=== PATIENT | female | born 1935 | race Caucasian/White ===

== ENCOUNTER 2018-10-17 19:17 | Inpatient (IN) | payer MEDICARE ==
[~2018-10-17] VITALS: Ht 160 cm; Wt 50.0 kg
[2018-10-17 19:26] VITALS: Ht 160 cm; Wt 50.0 kg
--- NOTE | 2018-10-17 19:32 | NUR ---
TAKEN TO BED 4; EKG IN TRIAGE.
[2018-10-17] MEDS ORDERED: CARDIZEM CD180 MG PO (19:58)
[2018-10-17] MEDS ORDERED: LIPI20 PO (19:58)
[2018-10-17 19:59] LABS: RED CELL DISTRIBUTION WIDTH 14.1 % (11.5-14.5)
[2018-10-17] MEDS ORDERED: ADV100/50 INH (19:59)
[2018-10-17] MEDS ORDERED: SYNTHROID0.05 MG PO (19:59)
[2018-10-17] MEDS ORDERED: SPIRIVA18 MC1 INH (19:59)
[2018-10-17 20:05] LABS: PLATELET COUNT 458 x10^3mcL (130-400)
--- NOTE | 2018-10-17 20:07 | NUR ---
PT PRESENTS TO ER TODAY WITH C/O OF SOB THAT STARTED AT APPROX 0200 THIS AM. PT ALSO REPORTS A NON-PRODUCTIVE COUGH THAT STARTED
--- NOTE | 2018-10-17 20:09 | NUR ---
PT PRESENTS TO ER TODAY WITH C/O OF SOB THAT STARTED AT APPORX 0200 THIS AM. PT ALSO REPORTS A NON-PRODUCTIVE COUGH. PTS LUNG SOUNDS ARE CLEAR IN ALL FUENTES WITH AUSCULTATION. PT DENIES ANY PAIN AT THIS TIME. PT ALSO REPORTS THAT SHE FRACTURED HER R KNEE APPROX TWO WEEKS AGO. PT STATES THAT SHE HAS BEEN HAVING INCREASED SWELLING SINCE HER FRACTURE. PTS R FOOT NOTED TO BE RED AND SWOLLEN WITH +2 PITTING EDEMA. CSM INTACT DISTALLY. PT IS A/O X4. RESP ARE EQUAL AND UNLABORED. NO ACUTE DISTRESS NOTED.
[2018-10-17 20:12] LABS: CALCIUM 8.7 mg/dL (8.5-10.1); CARBON DIOXIDE 24.5 mmol/L (21-32); CHLORIDE SERUM 95 mmol/L (98-107); CREATININE SERUM 1.3 mg/dL (0.6-1.0); GLUCOSE SERUM 154 mg/dL (74-106); POTASSIUM SERUM 4.6 mmol/L (3.5-5.1); SODIUM SERUM 130 mmol/L (136-145)
[2018-10-17 20:16] LABS: ALBUMIN 3.4 g/dL (3.4-5.0); ALKALINE PHOSPHATASE 119 U/L (46-116); ALT/SGPT 22 U/L (14-59); AST/SGOT 15 U/L (15-37); BILIRUBIN TOTAL 0.43 mg/dL (0.20-1.00); TOTAL PROTEIN, SERUM 7.5 g/dL (6.4-8.2)
--- NOTE | 2018-10-17 20:29 | NUR ---
LAB AT BEDSIDE DRAWING ABG.
[2018-10-17 20:40] LABS: BAND NEUTROPHIL 4 % (0-10); METAMYELOCTE 5 % (0-2); MONOCYTE 6 % (0-7); MYELOCYTE 1 % (0-2); SEGMENTED NEUTROPHILS 78 % (37-75)
[2018-10-17 20:41] LABS: rbc morphology (normal/abnorm) NORMAL (NORMAL)
[2018-10-17 20:42] LABS: PLATELET MORPHOLOGY PLATELETS NORMAL
--- NOTE | 2018-10-17 21:41 | NUR ---
US AT BEDSIDE.
--- NOTE | 2018-10-17 22:42 | NUR ---
PT RESTING IN BED TALKING TO FRIEND AT BEDSIDE. PT TACHY AT 113, ALL OTHER VITALS WNL. PT IS ON 3L OF O2 VIA NC AT THIS TIME. PT RESP ARE EQUAL AND UNLABORED. NO ACUTE DISTRESS NOTED.
[2018-10-18] VITALS (7 sets, daily range): BP systolic 107–128; BP diastolic 52–75
--- NOTE | 2018-10-18 01:42 | NUR ---
PTS O2 SAT NOTED IN THE HIGH 70'S. PT PLACED ON A MASK AT 15L/MIN. RT CALLED FOR ANOTHER BREATHING TREATMENT PER MD BRASWELL. NO ACUTE DISTRESS NOTED. PT O2 SAT AT 99 PERCENT AFTER PLACEDMENT OF NON-REBREATHER MASK.
--- NOTE | 2018-10-18 01:49 | NUR ---
RT AT BEDSIDE FOR BREATHING TREATMENT.
--- NOTE | 2018-10-18 01:51 | NUR ---
RT AT BEDSIDE TO ADMINISTER BREATHING TREATMENT.
--- NOTE | 2018-10-18 02:27 | NUR ---
REPORT GIVEN TO SILVIO YORK TO ASSUME CARE OF PT.
--- NOTE | 2018-10-18 03:52 | NUR ---
RECEIVED PT FROM ED VIA LOVE. ACCOMPANIED BY NURSE. A/O X4, ADMITTED WITH COMPLAINTS OF SOB AND CP, RESP. EVEN AND UNLABORED. 02 AT 3L/MIN VIA NC, SAT. 94%. HX OF COPD, DENIES CP OR ANY DISCOMFORT AT THIS TIME. S/P FALL [id number] AGO AT HOME.RT FOOT SWELLING /ERYTHEMA. FOOT ELEVATED ON PILLOW. PEDAL PULSE WEAK, ABLE TO MOVE EXTS. SKIN WARM AND DRY. DRY SCABS TO RT KNEE AND LT ELBOW. PICTURES TAKEN AND DOCUMENTED. AMBULATES WITH A CANE. AFEBRILE AND VITAL SIGNS STABLE. PLACED ON TELE #15, ST. WITH HR AT 105 AT THIS TIME. ABD. SOFT, NON DISTENDED, BS ACTIVE. NO N/V NOTED. ORIENTED TO ROOM AND SURROUNDINGS. BED IN LOW POSITION.CALL LIGHT WITHIN REACH. INSTRUCTED TO CALL FOR ASSIST. IF NEEDED. PT VERBALIZED UNDERSTANDING. WILL CONTINUE TO MONITOR.
--- NOTE | 2018-10-18 04:02 | NUR ---
STARTED ON IVF, NS AT 75ML/HR, INFUSING VIA RAC, SITE CLEAR. WILL CONTINUE TO MONITOR.
--- NOTE | 2018-10-18 06:24 | NUR ---
AFEBRILE AND VITAL SIGNS STABLE. RESP. EVEN AND UNLABORED. [address], NO ACUTE DISTRESS NOTED. EYES CLOSED AT THIS TIME, APPEARS ASLEEP, EASILY AROUSABLE. IVF INTACT AND INFUSING WELL, SITE CLEAR. KEPT COMFORTABLE. WILL ENDORSE TO INCOMING NURSE.
[2018-10-18 07:20] LABS: CALCIUM 8.7 mg/dL (8.5-10.1); CARBON DIOXIDE 25.1 mmol/L (21-32); CHLORIDE SERUM 98 mmol/L (98-107); GLUCOSE SERUM 269 mg/dL (74-106); PHOSPHOROUS 3.6 mg/dL (2.5-4.9); POTASSIUM SERUM 3.5 mmol/L (3.5-5.1); SODIUM SERUM 134 mmol/L (136-145)
[2018-10-18 07:27] LABS: PLATELET COUNT 395 x10^3mcL (130-400); RED CELL DISTRIBUTION WIDTH 14.1 % (11.5-14.5)
--- NOTE | 2018-10-18 07:37 | NUR ---
RECEIVED PATIENT FROM JAYLEN ANGUIANO. PATIENT SLEEPING IN BED, PREVIOUS ONE TIME DOSE OF ATIVAN 1 MG IVP GIVEN. NO S/S OF SOB OR PAIN. WILL CONTINUE TO MONITOR AT THIS TIME. PILLOW PLACED TO ELEVATE R FOOT. CALL LIGHT IN REACH AT THIS TIME.
[2018-10-18 07:40] LABS: BASOPHIL % 0 % (0-2)
[2018-10-18 07:46] LABS: CHOLESTEROL 169 mg/dL (<200)
[2018-10-18 07:59] LABS: CHOLESTEROL/HDL RATIO 1.4; FREE T4 1.26 ng/dL (0.76-1.46); FREE THYROXINE INDEX 3.1 ug/dL (1.4-4.5); HDL CHOLESTEROL 124 mg/dL (40-60); T4(THYROXINE) 7.9 ug/dL (4.7-13.3)
[2018-10-18 08:01] LABS: TRIGLYCERIDES < 15 mg/dL (<150)
[2018-10-18 09:08] LABS: T3 TOTAL 0.59 ng/mL
--- NOTE | 2018-10-18 10:02 | NUR ---
DR LOMBARDO AND DR ASHLEY IN TO SPEAK WITH PATIENT. PATIENT CONTINUES TO SLEEPING, VS STABLE BUT UNAROUSABLE. SS WARM, PINK, DRY. PT KELI ALSO IN TO WORK W PATIENT BUT UNABLE TO WOKEN. WILL CONTINUE TO MONITOR PATIENT CONDITION. CALL LIGHT IN REACH.
--- NOTE | 2018-10-18 12:08 | NUR ---
PATIENT NOW AWAKE. PATIENT ORIENTED. INFORMED PATIENT THAT CARE TEAM HAD SPOKEN WITH HER AND UPDATED PATIENT TO CURRENT PLAN OF CARE. PATIENT AGREES AND IS AWARE TO CALL FOR ASSISTANCE. CALL LIGHT IN REACH.
--- NOTE | 2018-10-18 14:51 | NUR ---
SPOKE WITH PATIENT DAUGHTER GLENN ABOUT PATIENT COURSE TODAY. PATIENT IN BED W NO COMPLAINTS OF SOB. NOW SPEAKING W DAUGHTER ON THE PHONE. CALL LIGHT IN REACH.
--- NOTE | 2018-10-18 18:19 | NUR ---
PATIENT RESTING IN BED AT THIS TIME. NO COMPLAINTS OF SOB. WILL ENDORSE TO ONCOMING NURSE. CALL LIGHT IN REACH AT THIS TIME.
--- NOTE | 2018-10-18 19:15 | NUR ---
RECEIVED PT FROM PREVIOUS SHIFT NURSE. PT AOX4, DENIES FIERRO/DIZZINESS. ON TELE #15, SR, HR 90. DENIES CP/PRESSURE. DENIES SOB/DIFFICULTY BREATHING, ON 3L NC. IV TO RAC, INTACT AND PATENT. BED IN LOWEST POSITION. CALL LIGHT WITHIN REACH. WILL CONTINUE TO MONITOR.
--- NOTE | 2018-10-18 23:55 | NUR ---
PT RESTING IN BED. RR EVEN AND UNLABORED. IN NO ACUTE DISTRESS. CALL LIGHT WITHIN REACH. BED IN LOWEST POSITION. WILL CONTINUE TO MONITOR.
--- NOTE | 2018-10-19 03:45 | NUR ---
PT RESTING IN BED. RR EVEN AND UNLABORED. IN NO ACUTE DISTRESS. CALL LIGHT WITHIN REACH. BED IN LOWEST POSITION. WILL CONTINUE TO MONITOR.
[2018-10-19 05:40] VITALS: BP 140/71
[2018-10-19 06:17] LABS: RED CELL DISTRIBUTION WIDTH 14.4 % (11.5-14.5)
[2018-10-19 06:54] LABS: BASOPHIL % 0 % (0-2); PLATELET COUNT 412 x10^3mcL (130-400)
[2018-10-19 06:55] LABS: CALCIUM 8.8 mg/dL (8.5-10.1); CARBON DIOXIDE 24.1 mmol/L (21-32); CHLORIDE SERUM 101 mmol/L (98-107); CREATININE SERUM 1.1 mg/dL (0.6-1.0); GLUCOSE SERUM 131 mg/dL (74-106); MAGNESIUM 2.1 mg/dL (1.8-2.4); PHOSPHOROUS 3.4 mg/dL (2.5-4.9); POTASSIUM SERUM 3.9 mmol/L (3.5-5.1); SODIUM SERUM 135 mmol/L (136-145)
--- NOTE | 2018-10-19 07:30 | NUR ---
PT ENDORSE TO ME THIS MORNING, LAYING IN BED RESTING AA/O X4. BREATHING EVEN AND UNLABOARED ON RA, NO ACUTE RESP DISTRESS OR SOB NOTED/ REMAINS ON 3L NC FOR PERIODS OF SOB. TELE 15 NSR, HR 98. EDEMA NOTED RLE +2/ELEVATED ON PILLOW. BOWEL SOUNDS ACTIVE IN ALL FOUR QUADS/ LAST BM 10/17 PER PT, FORMED. VOIDS FREELY/BSC ASSIST/ KNOWS TO CALL FOR ASSIST. GEN WEAKNESS CAN AMB WITH ASSIST. EDEMA TO RIGHT FOOT/ ELEVATED. IV TO THE RAC INTACT AND PATENT/ HEPLOCKED / REFUSING FLUIDS/ NO REDNESS OR SWELLING NOTED. CALL LIGHT IN REACH. BED IN LOW POSITION/ BY NURSING STATION. WILL CONTINUE TO MONITOR.
[2018-10-19 07:32] VITALS: BP 135/72
--- NOTE | 2018-10-19 09:30 | NUR ---
EDUCATED AND DEMONSTRATED PT HOW TO USE I.S. 10 X PER HR/ PER AGREED AND IS CLEAR.
--- NOTE | 2018-10-19 10:00 | NUR ---
NEW IV TO THE RFA INTACT AND PATENT, INFUSING AT 75ML/HR, NO REDNESS OR SWELLING NOTED. WILL CONTINUE TO MONITOR.
[2018-10-19 11:47] VITALS: BP 141/70
--- NOTE | 2018-10-19 14:28 | NUR ---
ASSISTED PT UP IN A CHAIR/ TOLERATED WELL. TOLERATED 100% OF LUNCH. FAMILY AT BEDSIDE. WILL CONTINUE TO MONTIOR.
[2018-10-19 16:19] VITALS: BP 138/67
--- NOTE | 2018-10-19 18:00 | NUR ---
PT UP IN CHAIR FOR DINNER, TOLERATED 100% OF DINNER, DENIES ANY N/V OR DISCOMFORT. WILL CONTINUE TO MONITOR.
--- NOTE | 2018-10-19 18:56 | NUR ---
NO ACUTE CHANGES AT THIS TIME. NO ACUTE RESP DISTRESS OR SOB NOTED/ REMAINS ON 3L NC TOLERATING WELL. ONCE AGAIN EDUCATED THE IMPORTANCE FOR USING I.S. 10 X PER HR, PT AGREED. IV TO THE RFA INTACT AND PATENT, NO REDNESS OR SWELLING NOTED. WILL ENDORSE TO INCOMING RN.
[2018-10-19 19:29] VITALS: BP 148/73
--- NOTE | 2018-10-19 19:35 | NUR ---
RECIEVED PT IN NO ACUTE DISTRESS. AOX4. TELE #15, SR. BREATHING E/U ON NC @ 2L. LUNGS CLEAR. DENIES SOB. REDNESS AND SWELLING NOTED TO R FOOT. IV TO RFA PATENT. BED IN LOWEST POSITION, 2 SIDE RAILS UP, CALL LIGHT IN REACH. INSTRUCTED TO CALL FOR ASSISTANCE.
--- NOTE | 2018-10-20 02:06 | NUR ---
RESTING WITH EYES CLOSED. BREATHING E/U, NO ACUTE DISTRESS NOTED. WILL CONTINUE TO MONITOR.
[2018-10-20 05:15] VITALS: BP 162/81
--- NOTE | 2018-10-20 06:06 | NUR ---
NO ACUTE DISTRESS NOTED. NO ACUTE CHANGES. WILL ENDORSE TO ONCOMING RN.
[2018-10-20 06:16] LABS: BASOPHIL % 0.2 % (0-2); RED CELL DISTRIBUTION WIDTH 14.2 % (11.5-14.5)
[2018-10-20 06:51] LABS: CALCIUM 8.3 mg/dL (8.5-10.1); CARBON DIOXIDE 24.2 mmol/L (21-32); CHLORIDE SERUM 103 mmol/L (98-107); CREATININE SERUM 0.9 mg/dL (0.6-1.0); GLUCOSE SERUM 94 mg/dL (74-106); PLATELET COUNT 460 x10^3mcL (130-400); POTASSIUM SERUM 3.4 mmol/L (3.5-5.1); SODIUM SERUM 139 mmol/L (136-145)
--- NOTE | 2018-10-20 07:16 | NUR ---
RECEIVED REPORT FROM JORGE YORK, PT IN BED IN NO ACUTE DISTRESS
--- NOTE | 2018-10-20 07:20 | NUR ---
PT IN BED, IN NO ACUTE DISTRESS, VERBAL, ABLE TO MAKE NEEDS KNOWN, AXOXO4, PERLLA, NO REDNESS/DRAINAGE, RESP EVEN, NO SOB/COUGH, 2L/MIN, 96%, NC, DENIED CP/PRESSURE/FIERRO, DENIED N/V, TELE #15, NSR, HR NOTED 90, ABD FLAT AND NON-TENDER TO TOUCH, LAST BM 10/19, SOFT PER PT REPORT, CONTINENT, BSC AT BEDSIDE, GENERALIZED WEAKNESS, PALP PULSES, CAP REFILL < 3S, IV PATENT AND INFUSING WELL, ALL NEEDS ADDRESSED AT THIS TIME, SAFETY PROTOCOL FOLLWED, CONTINUE TO MONITOR
--- NOTE | 2018-10-20 08:18 | NUR ---
ASSISTED TO BSC, VOID X 1, BACK TO BED, IN NO ACUTE DISTRESS
[2018-10-20 08:45] VITALS: BP 162/69
--- NOTE | 2018-10-20 09:18 | NUR ---
AM MED GIVEN PER EMAR, TOLERATED WELL, NO ASE NOTED AT THIS TIME, PT IN NO ACUTE DISTRESS, CONTINUE TO MONITOR
--- NOTE | 2018-10-20 10:36 | NUR ---
BM X 1, SMALL, SOFT, IN NO ACUTE DISTRESS IN BED
[2018-10-20 12:13] VITALS: BP 126/67
--- NOTE | 2018-10-20 13:37 | NUR ---
ASSISTED TO CHAIR, TOLERATED WELL, PT IN NO ACUTE DISTRESS
--- NOTE | 2018-10-20 14:33 | NUR ---
PT IN CHAIR, 94% AT RA, TOLERATED WELL, CONTINUE TO MONITOR
--- NOTE | 2018-10-20 17:25 | NUR ---
PT SITTING IN CHAIR, IN NO ACUTE DISTRESS, VERBAL, DENIED CP/PRESSURE/FIERRO, DENIED N/V/D, RESP EVEN, NO SOB/COUGH, RA, TOLERATED WELL, TELE #15, NSR, BS ACTIVE X 4, IV PATENT AND INFUSING WELL, NO INFILTRATION NOTED, DRESSING CDI, SKIN C/D/W, ALL NEEDS ADDRESSED AT THIS TIME, SAFETY PROTOCOL FOLLOWED, WILL ENDORSE TO ONCOMING RN
[2018-10-20 17:30] VITALS: BP 122/60
--- NOTE | 2018-10-20 19:30 | NUR ---
PT IS A/O x4. ON TELE #154, NSR. DENIES ANY CHEST PAIN OR PRESSURE. PULSES ARE PRESENT. EDEMA NOTED ON R FOOT. LUNGS CLEAR BUT DIMINISHED AT [place] BASES. ON RA, EQUAL CHEST RISE AND FALL. NO SIGN OF RESP DISTRESS. BOWEL SOUNDS PRESENT x4. DENIES ANY ABD PAIN OR DISCOMFORT. WEAKNESS ON R FOOT. SKIN IS INTACT. DARK PURPLE DISCOLORATION NOTED ON LAC. DENIES ANY PAIN AT THIS TIME. IV ON RFA IS INTACT AND PATENT. NO SIGN OF IRRITATION OR INFILTRATION NOTED. PT IS SITTING UP IN THE CHAIR. CALL LIGHT WITHIN REACH. WILL CONTINUE TO [facility].
[2018-10-20 21:10] VITALS: BP 147/76
--- NOTE | 2018-10-20 22:50 | NUR ---
PT WAS ASSISTED TO BED. PT TOLERATED WELL. MADE PT COMFORTABLE. BED IS AT LOWEST SETTING. CALL LIGHT WITHIN REACH.
[2018-10-21] VITALS (7 sets, daily range): BP systolic 133–164; BP diastolic 64–91
--- NOTE | 2018-10-21 05:50 | NUR ---
PT IS RESTING IN BED WITH BOTH EYES CLOSED. BREATHING EVEN AND UNALBORED. NO SIGN OF DISTRESS NOTED. BED IS AT LOWEST SETTING. CALL LIGHT WITHIN REACH. WILL CONTINUE TO MONTIOR.
--- NOTE | 2018-10-21 06:46 | NUR ---
PT IS RESTING IN BED. DENIES ANY PAIN OR DISTRESS. NO ACUTE EVENT OCCURED AT NIGHT. IV INTACT. BED IS AT LOWEST SETTING. CALL LIGHT WITHIN REACH. WILL ENDORSE TO AM NURSE.
[2018-10-21 06:47] LABS: CALCIUM 7.4 mg/dL (8.5-10.1); CARBON DIOXIDE 22.7 mmol/L (21-32); CHLORIDE SERUM 104 mmol/L (98-107); CREATININE SERUM 0.9 mg/dL (0.6-1.0); GLUCOSE SERUM 169 mg/dL (74-106); POTASSIUM SERUM 3.4 mmol/L (3.5-5.1); SODIUM SERUM 137 mmol/L (136-145)
[2018-10-21 07:22] LABS: BASOPHIL % 0 % (0-2); PLATELET COUNT 472 x10^3mcL (130-400)
--- NOTE | 2018-10-21 07:24 | NUR ---
RECEIVED REPORT FROM KAILYN YORK, PT IN BED IN NO ACUTE DISTRESS
--- NOTE | 2018-10-21 07:45 | NUR ---
PT IN BED, IN NO ACUTE DISTRESS, VERBAL, ABLE TO MAKE NEEDS KNOWN, AXOXO4, PERLLA, NO REDNESS/DRAINAGE, RESP EVEN, NO SOB/COUGH, RA, 94%, DENIED CP/PRESSURE/FIERRO, DENIED N/V/D, TELE #15, NSR, HR NOTED 98, ABD FLAT AND NON-TENDER TO TOUCH, BS ACTIVE X 4, CONTINENT, BSC AT BEDSIDE, GENERALIZED WEAKNESS, NEED ASSISTANCE W/ AMBULATING, PALP PULSES, CAP REFILL < 3S, IV PATENT AND INFUSING WELL, SEE SKIN ASSESSMENT, ALL NEEDS ADDRESSED AT THIS TIME, SAFETY PROTOCOL FOLLWED, CONTINUE TO MONITOR
--- NOTE | 2018-10-21 08:54 | NUR ---
AM MEDS GIVEN PER EMAR, TOLERATED WELL, NO ASE NOTED AT THIS TIME, PT IN BED W/ NO ACUTE DISTRESS
--- NOTE | 2018-10-21 09:00 | NUR ---
ASSISTED PT TO CHAIR FOR BREAKFAST, TOLERTED BREAKFAST WELL, 75%, IN NO ACUTE DISTRESS
[2018-10-21] MEDS ORDERED: LEVOFLOXACIN500 M1 PO (09:57)
[2018-10-21] MEDS ORDERED: MEDDP PO (09:58)
--- NOTE | 2018-10-21 10:23 | NUR ---
[place] TELE PER DARSHAN SANTO ORDER, TELE RETURNED TO [facility], TRANSFERED TO [facility]
--- NOTE | 2018-10-21 10:35 | NUR ---
PT SITTING IN CHAIR, RA, TOLERATED WELL, NO SOB/COUGH NOTED, RESP EVEN, 95%
--- NOTE | 2018-10-21 11:22 | NUR ---
PT WALKED W/ PT, TOLRATED WELL AT , DENIED CP/PRESSURE/FIERRO, DENIED N/V/D, DENIED SOB/COUGH, ASISSTED BACK TO CHAIR AFTER THERAPY, CONTINUE TO MONITOR
--- NOTE | 2018-10-21 12:53 | NUR ---
ASSISTED TO BSC, VOID X 1, SITTING IN CHAIR, RA, TOLERATED WELL, IN NO ACUTE DISTRESS, CONTINUE TO MONITOR
--- NOTE | 2018-10-21 14:58 | NUR ---
PHYSICAL THERAPY DAILY NOTES CO-SIGN All documentation done by the Pack Press Operator for 10/21/18 has been reviewed. I agree with the documentation. Reviewed/Co-Signed by: Jaylin Gracia PT Documentation Done by: JOHNATHAN SOTO PTA
--- NOTE | 2018-10-21 15:58 | NUR ---
PT ASSISTED BY PT WALKED ON HALLWAY W/ CANE, TOLERATED WELL, ASSISTED BACK TO BED, ON RA, O2 SAT 96%, IN NO ACUTE DISTRESS, IV PATENT AND INFUSING WELL
--- NOTE | 2018-10-21 17:00 | NUR ---
RECEIVED PT FROM ICU VIA WC, ASSISTED BY ICU GABBY RN, PT IN NO ACUTE DISTRESS, VERBAL, ERITREAN, ABLE TO MAKE NEEDS KNOWN, CONTACT ISOLATION FOR MRSA NARES, PERLLA, NO REDNESS/DRAINAGE, NO FACIAL DROOP/SLURRED SPEECH, DENIED CP/PRESSURE/FIERRO, DENIED N/V/DIZZINESS, RESP EVEN, NO SOB/COUGH, RA, TELE #10, NSR, ABD FLAT AND NON-TENDER TO TOUCH, BS ACTIVE X 4, LAST BM TODAY PER PT REPORT, DIARRHEA, SEMI-LIQUID, PALP PULSES, CAP REFILL < 3S, CENTRAL LING RIJ PATENT, DRESSING CDI, SEE SKIN ASSESSMENT, DRESSING CHANGED BY WOUND NURSE TODAY, PICS TAKEN KEPT IN CHART BY WOUND NURSE, DRESSING CDI, SKIN C/D/W, AMBULATORY, CONTINENT, V/S: 98.1, 100/54 (76), 66, 16, 99% AT RA, , ALL NEEDS ADDRESSED AT THIS TIME, SAFETY PROTOCOL FOLLOWED, CONTINUE TO MONITOR
--- NOTE | 2018-10-21 18:03 | NUR ---
PT SITTING IN BED, IN NO ACUTE DISTRESS, VERBAL, AXOX4, DENIED CP/PRESSURE/FIERRO, DENIED N/V/D, RESP EVEN, NO SOB/COUGH, RA, TOLERATED WELL, PENNY, BS ACTIVE X 4, IV PATENT AND INFUSING WELL, NO INFILTRATION NOTED, DRESSING CDI, SKIN C/D/W, ALL NEEDS ADDRESSED AT THIS TIME, SAFETY PROTOCOL FOLLOWED, WILL ENDORSE TO ONCOMING RN
--- NOTE | 2018-10-21 19:30 | NUR ---
PT IS A/O x4. ON MED SURG. DENIES ANY CHEST PAIN OR PRESSURE. PULSES ARE PRESENT. EDEMA NOTED ON RLE. LUNGS CLEAR IN ALL FEILDS. NO SIGN OF RESP DISTRESS. EQUAL CHEST RISE AND FALL. BOWEL SOUNDS PRESENT x4. DENIES ANY ABD PAIN OR DISTRESS. SKIN IS INTACT. DENIES ANY PAIN AT THIS TIME. IV ON RFA INTACT AND PATENT. PT IS SITTING UP IN CHAIR. CALL LIGHT WITHIN REACH. PT IS A BIT SAD SHE WASN'T ABLE TO GO HOME TODAY AND WAS TEARY. THERAPUTIC COMMUNICATION PROVIDED, PT SMILED. WILL CONTINUE TO MONTIOR.
--- NOTE | 2018-10-22 01:05 | NUR ---
PT IS RESTING IN BED WITH BOTH EYES CLOSED. BREATHING EVEN AND UNLABORED. NO SIGN OF DISTRESS NOTED. IV INTACT AND PATENT. BED IS AT LOWEST SETTING. CALL LIGHT WITHIN REACH. WILL CONTINUE TO MONITOR.
[2018-10-22 05:29] VITALS: BP 147/88
--- NOTE | 2018-10-22 06:24 | NUR ---
PT IS RESTING IN BED. DENIES ANY PAIN OR DISTRESS. PT DOES COMPLAIN OF MINOR COUGH, MEDICATION GIVEN PER EMAR. NO ACUTE EVENTS OCCURED DURING SHIFT. BED AT LOWEST SETTING. CALL LIGHT WITHIN REACH. WILL ENDORSE TO AM NURSE.
--- NOTE | 2018-10-22 07:40 | NUR ---
SEEN RESTING WITH EYES CLOSE, EASILY TO AROUSE, BREATHING EASY AND EVEN NOTED ON ROOM AIR. REFUSED TO BE ASSISTED TO CHAIR FOR BREAKFAST STATED " JUST WANNA SLEEP A LITTLE BIT MORE" IVS NS TO RFA NOTED INTACT, NO SWELLING OR LEAKING TO SITE, NS INFUSING AT 75ML/HR. CALL LIGHT REINSTRUCTED AND PLACED WITHIN EASY REACH. SIDERAILS UP X3. WILL CONTINUE TO MONITOR.
[2018-10-22 08:58] VITALS: BP 165/71
--- NOTE | 2018-10-22 08:59 | NUR ---
SITTING UP IN CHAIR HAVING BREAKFAST, NO ANY DISTRESS NOTED, PLEASANT. INSTRUCTED TO CALL NEEDED, PATIENT VERBALIZED UNDERSTANDING.
--- NOTE | 2018-10-22 15:09 | NUR ---
PHYSICAL THERAPY DAILY NOTES CO-SIGN All documentation done by the Flight Control Specialist for 10/22/18 has been reviewed. I agree with the documentation. Reviewed/Co-Signed by: Jaylin Gracia PT Documentation Done by: JOHNATHAN SOTO PTA
[2018-10-22 16:37] VITALS: BP 142/73
[2018-10-22 17:11] VITALS: BP 133/64
--- NOTE | 2018-10-22 17:30 | NUR ---
REPORT GIVEN TO NURSE BOLDEN AT [facility] TEL# [phone]. PATIENT WILL BE TRANSFERED TO ROOM 417-A HEARING AID REPAIR TECHNICIAN TIME 18:00PM. PATIENT MADE AWARE.
--- NOTE | 2018-10-22 18:17 | NUR ---
HAD REGULAR DIET FOR DINNER, TOLERATED WELL. DENIES PAIN AT THIS TIME. DISCHARGE INSTRUCTION EXPLAINED AND SIGNED BY PATIENT WHO IS AWAKE, ALERT, ORIENTED X4.
--- NOTE | 2018-10-22 18:35 | NUR ---
S/L TO RFA REMOVED WITH CATHETER INTACT, NO ERYTHEMA OR SWELLING TO SITE, DRSG APPLIED. PATIENT WALKED FROM HER ROOM TO [facility] ON THE HALLWAY USING HER CANE, NO ANY DISTRESS NOTED. PICKED UP BY [facility]. CONDITION STABLE UPON TRANSFER.
--- NOTE | 2018-10-22 18:45 | NUR ---
LEFT VOICE MAIL ON PATIENT'S DAUGHTER GLENN PHONE REGUARDING A TRANSFER (TEL# [phone]).
== END 2018-10-22 18:45 | DRG 871 ==
LOC: ED 19:17 → DU 10-18 02:02 → MU 10-21 09:00
PROVIDERS: Emergency Medicine; ADMIT Internal Medicine
DX: A41.9 Sepsis, unspecified organism (principal); J96.01 Acute respiratory failure with hypoxia; N17.0 Acute kidney failure with tubular necrosis; G93.41 Metabolic encephalopathy; L03.115 Cellulitis of right lower limb; J44.1 Chronic obstructive pulmonary disease with (acute) exacerbation; J45.901 Unspecified asthma with (acute) exacerbation; E87.1 Hypo-osmolality and hyponatremia; Z68.1 Body mass index [BMI] 19.9 or less, adult; S82.001S Unspecified fracture of right patella, sequela; E03.9 Hypothyroidism, unspecified; I10 Essential (primary) hypertension; D64.9 Anemia, unspecified; E78.5 Hyperlipidemia, unspecified; F17.210 Nicotine dependence, cigarettes, uncomplicated; X58.XXXS Exposure to other specified factors, sequela
CPT/HCPCS: 36600; 83880; 84439; 85378; 94150; 97110-GP; 97116-GP; 97530-GP; G0378; J0690; J1200; J1956; J2060; J2405; J2920; J2930; J3490; J7030; J7613; J7626; J7644; Q0092; Q9967